=== PATIENT | male | born 1935 ===

== ENCOUNTER 2017-03-04 13:07 | Emergency (ER) | payer OTHER ==
[2017-03-04 13:17] VITALS: PULSE 83; RESP 20; TEMP 98.1; O2SAT 98
--- NOTE | 2017-03-04 13:57 | ED PDOC ---
HPI: Back Time Seen by Provider: 03/04/17 13:29 Chief Complaint (Nursing): Back Pain Chief Complaint (Provider): lower back pain History Per: Patient History/Exam Limitations: no limitations Onset/Duration Of Symptoms: Days (x 3) Current Symptoms Are (Timing): Still Present Associated Symptoms: None Additional Complaint(s): Meet Larson is an 81 year old male, with a previous medical history of an enlarged prostate, chronic back pain and arthritis, who presents to the ED with complaints of lower back pain. Pt reports back pain is chronic but has worsened within the past 3 days. Pt denies any recent trauma, numbness, tingling, incontinency or urinary symptoms. Pt reports urine is at baseline. Pt denies self medicating to alleviate symptoms. Pt reports pain is worse when he attempts to get up after sitting for a while. Pt denies any additional complaints at this time. PMD: none provided Past Medical History Reviewed: Historical Data Vital Signs: Last Vital Signs Temp 98.1 F 03/04/17 13:11 Pulse 83 03/04/17 13:11 Resp 20 03/04/17 13:11 BP 177/103 H 03/04/17 13:11 Pulse Ox 98 03/04/17 13:11 - Medical History PMH: Arthritis, COPD, Gastritis, HTN, Hypercholesterolemia, Osteoporosis Denies: Chronic Kidney Disease - Surgical History Surgical History: Back Surgery - Family History Family History: States: Unknown Family Hx - Immunization History Hx Tetanus Toxoid Vaccination: No Hx Influenza Vaccination: No Hx Pneumococcal Vaccination: No - Home Medications Home Medications: Ambulatory Orders Medication Instructions Recorded Ibuprofen [Motrin] 600 mg PO Q8 PRN #6 tab 09/14/14 Naproxen 500 mg PO BID #30 tab 05/01/16 Cyclobenzaprine [Cyclobenzaprine 10 mg PO Q8H #20 tab 03/04/17 HCl] Naproxen 500 mg PO BID #20 tab 03/04/17 - Allergies Allergies/Adverse Reactions: Allergies Allergy/AdvReac Type Severity Reaction Status Date / Time No Known Allergies Allergy Verified 03/04/17 13:11 Physical Exam - Reviewed Nursing Documentation Reviewed: Yes Vital Signs Reviewed: Yes - Physical Exam Appears: Positive for: Well, Non-toxic, No Acute Distress Head Exam: Positive for: ATRAUMATIC, NORMAL INSPECTION, NORMOCEPHALIC Cardiovascular/Chest: Positive for: Regular Rate, Rhythm Respiratory: Positive for: CNT, Normal Breath Sounds Back: Positive for: Other (right paraspinal tenderness). Negative for: L CVA Tenderness, R CVA Tenderness, Vertebral Tenderness Extremity: Positive for: Capillary Refill (< 2 seconds), Other (straight leg riase on the right leg ). Negative for: Deformity, Swelling Neurologic/Psych: Positive for: Alert, Oriented - ECG O2 Sat by Pulse Oximetry: 98 (RA) Pulse Ox Interpretation: Normal Medical Decision Making Medical Decision Making: Initial Impression: lower back pain r/o bone lesion vs fracture Initial Plan: * flexeril * naproxen * x-ray lumbar spine * reevaluation PT reports feeling better on re-evaluation. Scribe Attestation: Documented by Mary Dumont, acting as a scribe for Kimberley Parks PA-C. Provider Scribe Attestation: All medical record entries made by the Scribe were at my direction and personally dictated by me. I have reviewed the chart and agree that the record accurately reflects my personal performance of the history, physical exam, medical decision making, and the department course for this patient. I have also personally directed, reviewed, and agree with the discharge instructions and disposition. Disposition - Clinical Impression Clinical Impression: Sciatica - Patient ED Disposition Is Patient to be Admitted: No Counseled Patient/Family Regarding: Diagnosis, Need For Followup, Rx Given - Disposition Referrals: [facility] [Outside] Disposition: Routine/Home Disposition Time: 16:26 Condition: STABLE Prescriptions: Cyclobenzaprine [Cyclobenzaprine HCl] 10 mg PO Q8H #20 tab Naproxen 500 mg PO BID #20 tab Instructions: Sciatica (ED) Print Language: KENYAN
[2017-03-04] MEDS ORDERED: Naproxen 500 MG TAB PO STA (14:05)
[2017-03-04 15:33] VITALS: BP 130/68
--- NOTE | 2017-03-04 16:01 | RAD ---
PROCEDURE: Radiographs of the Lumbar Spine. HISTORY: low back pain, right sided COMPARISON: No prior. FINDINGS: BONES: There is normal alignment of the lumbar vertebral bodies. There is straightening of the lumbar spine with loss of normal lumbar lordosis. There is diffuse bone demineralization. There is no acute fracture or bone destruction. DISC SPACES: There is multilevel degenerative disc disease with anterior osteophytes, reduced disc heights and multilevel facet arthropathy, worse at L5-S1. OTHER FINDINGS: There are no pathologic soft tissue calcifications. IMPRESSION: No acute fracture. 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
== END 2017-03-04 17:03 | disposition home or self-care (01) ==
LOC: H.ER 13:07
DX: M54.30 Sciatica, unspecified side (principal)

== ENCOUNTER 2017-06-11 07:52 | Emergency (ER) | payer OTHER ==
--- NOTE | 2017-06-11 08:17 | ED PDOC ---
Upper Extremity Pain/Injury Time Seen by Provider: 06/11/17 08:03 Chief Complaint (Nursing): Upper Extremity Problem/Injury Chief Complaint (Provider): Right Arm Pain History Per: Patient History/Exam Limitations: no limitations Onset/Duration Of Symptoms: Other (3 years) Additional Complaint(s): Patient is an 81 year male, with no previous medical history, presenting to the ED for right arm pain associated with a rash to his right arm pit that has been ongoing for three years. Patient contributes his rash to his inability to raise his right arm and wash his armpit. He denies any other complaints at this time. PCP: none provided. Past Medical History Reviewed: Historical Data, Nursing Documentation, Vital Signs Vital Signs: Last Vital Signs Temp 97.0 F L 06/11/17 08:05 Pulse 84 06/11/17 08:05 Resp 19 06/11/17 08:05 BP 169/86 H 06/11/17 08:05 Pulse Ox 100 06/11/17 08:05 - Medical History PMH: Arthritis, COPD, Gastritis, HTN, Hypercholesterolemia, Osteoporosis Denies: Chronic Kidney Disease - Surgical History Surgical History: Back Surgery - Family History Family History: States: Unknown Family Hx - Immunization History Hx Tetanus Toxoid Vaccination: No Hx Influenza Vaccination: No Hx Pneumococcal Vaccination: No - Home Medications Home Medications: Ambulatory Orders Medication Instructions Recorded Ibuprofen [Motrin] 600 mg PO Q8 PRN #6 tab 09/14/14 Naproxen 500 mg PO BID #30 tab 05/01/16 Cyclobenzaprine [Cyclobenzaprine 10 mg PO Q8H #20 tab 03/04/17 HCl] Naproxen 500 mg PO BID #20 tab 03/04/17 Clotrimazole/Betamethasone 15 gm EXT BID #2 tube 06/11/17 [Lotrisone] Naproxen [Naprosyn] 500 mg PO Q12H #20 tab 06/11/17 - Allergies Allergies/Adverse Reactions: Allergies Allergy/AdvReac Type Severity Reaction Status Date / Time No Known Allergies Allergy Verified 03/04/17 13:11 Review of Systems ROS Statement: Except As Marked, All Systems Reviewed And Found Negative Musculoskeletal: Positive for: Arm Pain (Right) Skin: Positive for: Rash (Right axillary) Physical Exam - Reviewed Nursing Documentation Reviewed: Yes Vital Signs Reviewed: Yes - Physical Exam Appears: Positive for: Well, Non-toxic, No Acute Distress Head Exam: Positive for: ATRAUMATIC, NORMAL INSPECTION, NORMOCEPHALIC Skin: Positive for: Warm, Dry, Rash (Rash on right axillary region is erythematous, flat, and confluent.) Eye Exam: Positive for: Normal appearance ENT: Positive for: Normal ENT Inspection Neck: Positive for: Normal Cardiovascular/Chest: Positive for: Regular Rate, Rhythm Respiratory: Positive for: CNT, Normal Breath Sounds Extremity: Negative for: Normal ROM (Pain on adduction and abduction of right arm), Deformity Neurologic/Psych: Positive for: Alert, Oriented - ECG O2 Sat by Pulse Oximetry: 100 (RA) Pulse Ox Interpretation: Normal Medical Decision Making Medical Decision Making: Initial Plan: * physical exam * disposition Scribe Attestation: Documented by Meagan Jones, acting as a scribe for Pedro Pablo Naqvi MD. Provider Scribe Attestation: All medical record entries made by the Scribe were at my direction and personally dictated by me. I have reviewed the chart and agree that the record accurately reflects my personal performance of the history, physical exam, medical decision making, and the department course for this patient. I have also personally directed, reviewed, and agree with the discharge instructions and disposition. Disposition - Clinical Impression Clinical Impression: Rosalinda infection - Patient ED Disposition Is Patient to be Admitted: No Doctor Will See Patient In The: Office Counseled Patient/Family Regarding: Studies Performed, Diagnosis, Need For Followup, Rx Given - Disposition Referrals: [facility] [Outside] Disposition Time: 08:33 Condition: FAIR Prescriptions: Clotrimazole/Betamethasone [Lotrisone] 15 gm EXT BID #2 tube Naproxen [Naprosyn] 500 mg PO Q12H #20 tab Instructions: Skin Yeast Infection (ED) Print Language: GUATEMALAN
[2017-06-11 12:41] VITALS: BP 132/74; PULSE 84; RESP 19; TEMP 97; O2SAT 100
== END 2017-06-11 08:25 | disposition home or self-care (01) ==
LOC: H.ER 07:52
DX: B37.2 Candidiasis of skin and nail (principal); E78.00 Pure hypercholesterolemia, unspecified; I10 Essential (primary) hypertension; J44.9 Chronic obstructive pulmonary disease, unspecified; M81.0 Age-related osteoporosis without current pathological fracture